=== PATIENT | female | born 1995 | race African-American/Black ===

== ENCOUNTER 2021-03-05 15:07 | Inpatient (IN) | payer MEDICAID ==
[~2021-03-05] VITALS: Ht 167.6 cm; Wt 63.8 kg
[2021-03-05 15:59] LABS: BASOPHILS % (AUTO) 0.7 % (0.0-2.0); EOSINOPHILS % (AUTO) 3.4 % (1.0-6.0); HEMATOCRIT 40.9 % (36-46); HEMOGLOBIN 13.5 g/dL (12.0-16.0); LYMPHOCYTES # (AUTO) 0.8 K/uL (1.0-4.8); LYMPHOCYTES % (AUTO) 17.7 % (22.0-44.0); MEAN CORPUSCULAR HEMOGLOBIN 27.3 pg (26.0-34.0); MEAN CORPUSCULAR HGB CONC 33.1 G/dL (31.0-37.0); MEAN CORPUSCULAR VOLUME 82 fL (80-100); MONOCYTES # (AUTO) 0.8 K/uL (0.1-1.0); MONOCYTES % (AUTO) 17.1 % (2.0-9.0); NEUTROPHILS # (AUTO) 2.9 K/uL (1.8-7.7); NEUTROPHILS % (AUTO) 61.1 % (40.0-70.0); PLATELET COUNT (AUTO) 293 K/uL (150-450); RED BLOOD CELL COUNT(AUTO) 4.96 MIL/uL (4.00-5.20)
[2021-03-05] MEDS ORDERED: ONDANSETRON HCL 4 MG/2 ML VIAL IVP ONE (16:00)
[2021-03-05] MEDS ORDERED: ACTIVATED CHARCOAL 50 GM/240 ML SUSPENSION PO ONE (16:00)
[2021-03-05 16:10] LABS: INR 1.1 (0.9-1.1); PROTHROMBIN TIME 11.4 SEC (9.4-11.6)
[2021-03-05] MEDS ORDERED: SODIUM CHLORIDE 0.9% 1,000 ML IV ONE (16:15)
[2021-03-05 16:27] LABS: SALICYLATE 19.5 mg/dL (2.8-20.0)
[2021-03-05 16:31] LABS: ANION GAP 13 mmol/L (8-16); CALCIUM, TOTAL 9.2 mg/dL (8.8-10.5); CARBON DIOXIDE 24 mmol/L (22-29); CHLORIDE 102 mmol/L (98-107); CREATININE 0.86 mg/dL (0.60-1.30); GLOMERULAR FILTR. RATE CALC > 60 mL/min (>60); GLUCOSE,RANDOM 107 mg/dL (70-110); POTASSIUM 3.8 mmol/L (3.5-5.1); SODIUM SERUM 139 mmol/L (136-145); UREA NITROGEN, BLOOD 10 mg/dL (7-18)
[2021-03-05 16:42] LABS: ALANINE AMINOTRANSFERASE 88 U/L (12-78); ALBUMIN 3.9 g/dL (3.4-5.0); ALKALINE PHOSPHATASE 141 U/L (46-116); ASPARTATE AMINOTRANSFERASE 41 U/L (15-37); BILIRUBIN,TOTAL 0.4 mg/dL (0.1-1.0); HCG,QUANTITATIVE < 1 mIU/mL (0-6); TOTAL PROTEIN, SERUM 8.5 g/dL (6.4-8.2)
[2021-03-05 16:45] LABS: ACETAMINOPHEN < 2 mcg/mL (10-30)
[2021-03-05 18:46] LABS: COVID AG,FIA SOURCE NASOPHARYNGEAL
[2021-03-05 21:22] LABS: ANION GAP 13 mmol/L (8-16); CALCIUM, TOTAL 8.6 mg/dL (8.8-10.5); CARBON DIOXIDE 22 mmol/L (22-29); CHLORIDE 104 mmol/L (98-107); CREATININE 0.91 mg/dL (0.60-1.30); GLOMERULAR FILTR. RATE CALC > 60 mL/min (>60); GLUCOSE,RANDOM 109 mg/dL (70-110); POTASSIUM 3.9 mmol/L (3.5-5.1); SODIUM SERUM 139 mmol/L (136-145); UREA NITROGEN, BLOOD 8 mg/dL (7-18)
[2021-03-05] MEDS ORDERED: ZOLPIDEM TARTRATE 10 MG TABLET PO PRN (22:15)
[2021-03-06] MEDS ORDERED: DiphenhydrAMINE HCL 50 MG/ML VIAL IM ONE (05:45)
[2021-03-06] MEDS ORDERED: HALOPERIDOL LACTATE 5 MG/ML VIAL IM ONE (05:45)
[2021-03-06] MEDS ORDERED: LORazepam 2 MG/ML VIAL IM ONE (05:45)
[2021-03-06 09:43] VITALS: BP 116/59
[2021-03-06] MEDS ORDERED: MAG HYDROX/AL HYDROX/SIMETH ES 30 ML SUSPENSION UDCUP PO PRN (09:45)
[2021-03-06] MEDS ORDERED: CloNIDine HCL 0.1 MG TABLET PO PRN (09:45)
[2021-03-06] MEDS ORDERED: BENZOCAINE/MENTHOL LOZENGE PO PRN (09:45)
[2021-03-06] MEDS ORDERED: PETROLATUM,WHITE 28 GM JELLY TP PRN (09:45)
[2021-03-06] MEDS ORDERED: BACITRACIN 28 GM OINTMENT TP PRN (09:45)
[2021-03-06] MEDS ORDERED: ACETAMINOPHEN 325 MG TABLET PO PRN (09:45)
[2021-03-06] MEDS ORDERED: MAGNESIUM HYDROXIDE SUSPENSION 30 ML UDCUP PO PRN (09:45)
[2021-03-06] MEDS ORDERED: ONDANSETRON HCL 4 MG TABLET PO PRN (09:45)
[2021-03-06] MEDS ORDERED: ALBUTEROL SULFATE HFA 90 MCG/PUFF 8 GM INHALER IH PRN (09:45)
[2021-03-06] MEDS ORDERED: OMEPRAZOLE 20 MG CAPSULE PO PRN (09:45)
[2021-03-06] MEDS ORDERED: DOCUSATE SODIUM 100 MG CAPSULE PO PRN (09:45)
[2021-03-06] MEDS ORDERED: LOPERAMIDE HCL 2 MG CAPSULE PO PRN (09:45)
[2021-03-06 16:28] VITALS: BP 103/60
[2021-03-06 19:12] VITALS: BP 103/60
[2021-03-07] VITALS: BP 141/82
[2021-03-07 08:06] VITALS: BP 113/68
[2021-03-07] MEDS: LORazepam 2 MG TABLET PO PRN (13:29)
[2021-03-07] MEDS: OLANZapine 5 MG TABLET PO PRN (15:39)
[2021-03-07 16:22] VITALS: BP 109/80
[2021-03-07] MEDS: OLANZapine 5 MG TABLET PO SCH (20:40)
[2021-03-08 06:34] VITALS: BP 126/77
[2021-03-08 08:06] VITALS: BP 113/71
[2021-03-08] MEDS: LORazepam 2 MG TABLET PO PRN ×2 (09:52→16:09)
[2021-03-08 16:04] VITALS: BP 114/79
[2021-03-08] MEDS: OLANZapine 5 MG TABLET PO SCH (20:22)
[2021-03-09 08:31] VITALS: BP 119/65
[2021-03-09 16:07] VITALS: BP 107/69
[2021-03-09] MEDS: LORazepam 2 MG TABLET PO PRN (16:23)
[2021-03-09] MEDS: OLANZapine 5 MG TABLET PO SCH (20:22)
[2021-03-10 01:41] VITALS: BP 102/62
[2021-03-10] MEDS: IBUPROFEN 600 MG TABLET PO PRN ×2 (06:53→17:13)
[2021-03-10 06:55] LABS: COVID AG,FIA SOURCE NASOPHARYNGEAL
[2021-03-10] MEDS: OLANZapine 5 MG TABLET PO PRN (07:46)
[2021-03-10] MEDS: LORazepam 2 MG TABLET PO PRN (07:46)
[2021-03-10 08:08] VITALS: BP 116/77
[2021-03-10 16:08] VITALS: BP 108/76
[2021-03-10 17:14] VITALS: BP 116/68
[2021-03-10] MEDS: OLANZapine 7.5 MG TABLET PO SCH (20:38)
[2021-03-11] MEDS: LORazepam 2 MG TABLET PO PRN ×3 (07:43→17:22)
[2021-03-11 08:35] VITALS: BP 109/71
[2021-03-11 16:11] VITALS: BP 108/69
[2021-03-11] MEDS: OLANZapine 7.5 MG TABLET PO SCH (20:28)
[2021-03-12 02:38] VITALS: BP 112/72
[2021-03-12 08:00] VITALS: BP 122/78
[2021-03-12] MEDS ORDERED: THIAMINE 100 MG TABLET PO SCH (12:00)
[2021-03-12] MEDS ORDERED: FOLIC ACID 1 MG TABLET PO SCH (12:00)
[2021-03-12] MEDS ORDERED: MULTIVITAMINS WITH MINERALS, THERAPEUTIC TABLET PO SCH (12:00)
[2021-03-12 16:02] VITALS: BP 106/62
[2021-03-12] MEDS ORDERED: OLAN7.5T2 PO (16:22)
== END 2021-03-12 17:00 | disposition home or self-care (01) | DRG 754 ==
LOC: EMS 15:11 → B3A 23:00 → B2S 03-06 11:00
PROVIDERS: ADMIT Psychiatry & Neurology Psychiatry; ATTEND Psychiatry & Neurology Psychiatry
DX: F32.9 Major depressive disorder, single episode, unspecified (principal); F22 Delusional disorders; F10.10 Alcohol abuse, uncomplicated; F17.210 Nicotine dependence, cigarettes, uncomplicated; F41.9 Anxiety disorder, unspecified; G47.00 Insomnia, unspecified; K59.00 Constipation, unspecified; Z20.822 Contact with and (suspected) exposure to COVID-19; K21.9 Gastro-esophageal reflux disease without esophagitis; R74.01 Elevation of levels of liver transaminase levels; Z88.2 Allergy status to sulfonamides; Z91.013 Allergy to seafood; Z91.018 Allergy to other foods
CPT/HCPCS: 80048; 80053; 84702; 85025; 85610; 85730; 87426; 93005; 99291; G0480; G0481; J1200; J1630; J2060; J2405; J7030